=== PATIENT | female | born 1995 | race Caucasian/White ===

== ENCOUNTER → 2024-05-19 | Outpatient (CLI) | payer BC | LOC: DIA.ED 10:35 | DX: O24.419 Gestational diabetes mellitus in pregnancy, unspecified control (principal) ==

== ENCOUNTER 2024-07-02 06:20 | Inpatient (IN) | payer BC ==
[2024-07-02] VITALS (37 sets, daily range): BP systolic 105–148; BP diastolic 53–102; PULSE 59–93; TEMP 98.2–98.6
[~2024-07-02] VITALS: Ht 162.6 cm; Wt 79.5 kg
[2024-07-02] MEDS ORDERED: LR & Oxytocin 500 ML IV SCH (07:00)
[2024-07-02] MEDS ORDERED: LR 1,000 ML IV SCH (07:00)
[2024-07-02] MEDS ORDERED: PRENATAL PO (07:03)
[2024-07-02 07:23] LABS: BASO % 0.5 % (0.0-2.0); EOS % 0.5 % (0.0-4.0); GRAN # 5.3 K/mm3 (1.4-6.5); GRAN % 64.9 % (42.2-75.2); HEMOGLOBIN 12.4 g/dl (12.5-16.0); LYMPH # 2.1 K/mm3 (1.2-3.4); LYMPH % 25.8 % (20.0-51.0); MEAN CELL VOLUME 93 fl (80.0-100.0); MEAN CORPUSCULAR HEMOGLOBIN 31 pg (27-31); MEAN CORPUSCULAR HGB CONC 34 g/dl (33.0-37.0); MEAN PLATELET VOLUME 10.5 fl (7.4-10.4); MONO # 0.6 K/mm3 (0.1-0.6); MONO % 7.2 % (1.7-9.3); PLATELET COUNT 183 K/mm3 (130-400); RED BLOOD COUNT 3.96 M/mm3 (4.10-5.30); REDCELL DISTRIBUTION WIDTH-CV 13.8 % (11.5-14.5)
--- NOTE | 2024-07-02 07:52 | NUR ---
0630: PT. AMBULATORY TO UNIT FOR IOL ACCOMPANIED BY IN STABLE CONDITION. PT. CONFIRMS MOVEMENT, DENIES LOF, VAGINAL BLEEDING AND CONTRACTIONS.
--- NOTE | 2024-07-02 08:16 | NUR ---
DR OLSON AT BEDSIDE. SVE /-1, AROM WITH CLEAR FLUID AT 0816. PT TOLERATED EXAM WELL. CATEGORY 1 EFM TRACING THROUGHOUT.
[2024-07-02] MEDS ORDERED: HUMULIN 70/30 PE3 ML SQ (08:19)
[2024-07-02] MEDS ORDERED: HUMALOG KW200 UNIT/1 SQ (08:30)
[2024-07-02 09:00] LABS: TRICYCLIC ANTIDEPRESS URINE NEGATIVE (NEGATIVE)
[2024-07-02] MEDS ORDERED: ROPivacaine PF 0.2% 200 ML IV ONE (10:24)
[2024-07-02] MEDS ORDERED: diphenhydrAMINE 50 MG/ML 1 ML VIAL IV PRN (11:00)
[2024-07-02] MEDS ORDERED: ePHEDrine 50 MG/10 ML VIAL IV PRN (11:00)
[2024-07-02] MEDS ORDERED: Naloxone 0.4 MG/ML VIAL IV PRN ×2 (11:00→14:30)
[2024-07-02] MEDS ORDERED: diphenhydrAMINE 25 MG CAP PO PRN (11:00)
[2024-07-02] MEDS ORDERED: Ondansetron 4 MG/2 ML VIAL IV PRN (11:00)
--- NOTE | 2024-07-02 11:09 | NUR ---
1039: PT. SITTING ON EDGE OF BED FOR EPIDURAL PLACEMENT. DIFFICULT TO MAINTAIN FHTS DUE TO MATERNAL POSITION. TEST DOSE ADMINISTERED AT 1039 PER VOLODYMYR ER RN. PT. TOLERATED PROCEDURE WELL
[2024-07-02] MEDS ORDERED: Chloroprocaine PF 3% (30 MG/ML) 20 ML VIAL ONE (11:15)
[2024-07-02] MEDS ORDERED: Ibuprofen 800 MG TAB PO SCH (14:30)
[2024-07-02] MEDS ORDERED: oxyCODONE 5 MG TAB PO PRN (14:30)
[2024-07-02] MEDS ORDERED: Acetaminophen 500 MG TAB PO SCH (14:30)
[2024-07-02] MEDS ORDERED: Mag/Al Hydrox/Simeth Susp 30 ML CUP PO PRN (14:30)
[2024-07-02] MEDS ORDERED: Loratadine 10 MG TAB PO PRN (14:30)
[2024-07-02] MEDS ORDERED: Phenylephrine/Mineral Oil/Petrolatum 57 GM TUBE RC PRN (14:30)
[2024-07-02] MEDS ORDERED: Magnes Hydrox (MOM) 80 MG/ML 30 ML CUP PO PRN (14:30)
[2024-07-02] MEDS ORDERED: Measles/Mumps/Rubella Virus Vaccine Live w Diluent 0.5 ML VIAL SQ SCH (14:30)
[2024-07-02] MEDS ORDERED: Witch Hazel 50% Pads Bulk TUB TP PRN (14:30)
--- NOTE | 2024-07-02 16:16 | NUR ---
1200: PT COMPLETE AT THIS TIME AND -1 STATION. Doe HARRELL RN CALLS DR. OLSON AT 1202. PT. UP IN [facility], PRACTICE PUSHING BEGINS. DR. OLSON TO ROOM AT 1215. PT PUSHES WELL AND CONTINUES TO MOVE DOWNWARD WITH EVERY CONTRACTION. 1357: DELIVERY OF VIABLE MALE AT 1357 WITH NUCHAL X1. 1401: DELIVERY OF PLACENTA AT 1401. PITOCIN INCREASED TO 333 MILLIUNITS/HOUR. 2ND DEGREE LACERATION REPAIRED BY DR. OLSON. FUNDUS FIRM WITH MASSAGE. EBL 200ML. MOTHER AND INFANT IN STABLE CONDITION. WILL CONTINUE TO MONITOR
[2024-07-02] MEDS ORDERED: Sennosides/Docusate 8.6-50 MG TAB PO SCH (17:00)
[2024-07-02] MEDS ORDERED: traZODone 50 MG TAB PO PRN (21:00)
[2024-07-03 01:00] VITALS: BP 114/62; PULSE 83; TEMP 97.8
[2024-07-03 04:30] VITALS: BP 113/71; PULSE 80; TEMP 97.8
[2024-07-03 07:50] VITALS: BP 122/67; PULSE 89; TEMP 98.4
[2024-07-03] MEDS ORDERED: Prenatal Vitamins/Iron/FA TAB PO SCH (09:00)
[2024-07-03] MEDS ORDERED: IBU800 M1 PO (09:47)
--- NOTE | 2024-07-03 09:58 | NUR ---
Initial visit; Parents thanked Cop Winder for looking in on them and offering congratulations and God's blessings for the of their son. Cop Winder thanked family for choosing [facility].
--- NOTE | 2024-07-03 15:47 | NUR ---
pt given both written and verbal discharge instructions. Pt educated on signs/symptoms that would require medical attention. Pt verbalized understanding and has no questions at this time.
== END 2024-07-03 16:10 | disposition home or self-care (01) | DRG 807 ==
LOC: LDR 06:20 → LDRO 09:12 → OB 09:21 → EDSTATUS 12:30 → OB 12:31
PROVIDERS: ADMIT Obstetrics & Gynecology
PROC: 10E0XZZ Delivery of Products of Conception, External Approach (ICD-10-PCS; principal; 2024-07-02)
PROC: 0KQM0ZZ Repair Perineum Muscle, Open Approach (ICD-10-PCS; 2024-07-02)
PROC: 3E033VJ Introduction of Other Hormone into Peripheral Vein, Percutaneous Approach (ICD-10-PCS; 2024-07-02)
PROC: 10907ZC Drainage of Amniotic Fluid, Therapeutic from Products of Conception, Via Natural or Artificial Opening (ICD-10-PCS; 2024-07-02)
DX: O48.0 Post-term pregnancy (principal); Z37.0 Single live birth; Z3A.40 40 weeks gestation of pregnancy; M41.9 Scoliosis, unspecified; O99.892 Other specified diseases and conditions complicating childbirth; O24.424 Gestational diabetes mellitus in childbirth, insulin controlled; O69.81X0 Labor and delivery complicated by cord around neck, without compression, not applicable or unspecified; O70.1 Second degree perineal laceration during delivery; O35.19X0 Maternal care for (suspected) chromosomal abnormality in fetus, other chromosomal abnormality, not applicable or unspecified; O76 Abnormality in fetal heart rate and rhythm complicating labor and delivery
CPT/HCPCS: J2401; J2590; J2795; J7120